=== PATIENT | female | born 1995 ===

== ENCOUNTER 2023-08-06 06:42 | Day surgery (SDC) | payer OTHER ==
[2023-08-05 10:53] LABS: HEMATOCRIT 38.7 % (36.0-45.00); HEMOGLOBIN 12.8 g/dL (12.0-15.00); MEAN CELL VOLUME 91.6 fL (80.00-100.00); MEAN CORPUSCULAR HEMOGLOBIN 30.2 pg (27.00-32.0); PLATELET COUNT 209 K/uL (150-450); RED BLOOD COUNT 4.23 M/uL (4.00-6.00); RED CELL DISTRIBUTION WIDTH 13.2 % (11.5-14.5)
[2023-08-05 11:17] LABS: INR 0.98; PARTIAL THROMBOPLASTIN TIME 28.5 SECONDS (22.0-34.0); PROTHROMBIN TIME 10.3 SECONDS (9.0-11.5)
[2023-08-05 11:21] LABS: BILIRUBIN TOTAL 0.37 mg/dL (0.3-1.2); CALCIUM 9.1 mg/dL (8.5-10.1); CREATININE SERUM 0.68 mg/dL (0.55-1.02); GFR 102.29; GLOBULINA 3.7 G/DL (2.4-3.5); POTASSIUM 4.56 mEq/L (3.5-5.1); TOTAL PROTEIN 7.7 gm/dL (6.4-8.2)
[~2023-08-06 06:42] MED LIST: SYNTHROID75 MCG PO
== END 2023-08-07 01:45 | disposition home or self-care (01) ==
LOC: CIR.AMB 06:42
PROVIDERS: ATTEND Obstetrics & Gynecology
DX: O02.1 Missed abortion (principal); O72.2 Delayed and secondary postpartum hemorrhage; Z20.822 Contact with and (suspected) exposure to COVID-19

== ENCOUNTER 2024-06-26 14:00 | Inpatient (IN) | payer OTHER ==
[~2024-06-26] VITALS: Ht 160 cm; Wt 3.2 kg
[2024-07-11 16:02] VITALS: BP 116/65
[2024-07-11 16:37] LABS: HEMATOCRIT 36.3 % (36.0-45.00); HEMOGLOBIN 12.2 g/dL (12.0-15.00); MEAN CELL VOLUME 93.4 fL (80.00-100.00); MEAN CORPUSCULAR HEMOGLOBIN 31.3 pg (27.00-32.0); MEAN CORPUSCULAR HGB CONC 33.5 g/dl (32.0-36.0); PLATELET COUNT 167 K/uL (150-450); RED BLOOD COUNT 3.89 M/uL (4.00-6.00); RED CELL DISTRIBUTION WIDTH 13.3 % (11.5-14.5)
[2024-07-11] MEDS ORDERED: MISOPROSTOL 25 MCG TABLET ONE (16:40)
[2024-07-11 17:11] LABS: INR < 0.93; PARTIAL THROMBOPLASTIN TIME 27.6 SECONDS (22.0-34.0); PROTHROMBIN TIME 9.8 SECONDS (9.0-11.5)
[2024-07-11] MEDS ORDERED: MORPHINE SULFATE 4 MG/ML CARTRIDGE IV PRN (17:15)
[2024-07-11 17:17] LABS: ALBUMIN 3.1 gm/dL (3.4-5.0); BILIRUBIN TOTAL 0.25 mg/dL (0.3-1.2); CALCIUM 9.4 mg/dL (8.5-10.1); CREATININE SERUM 0.9 mg/dL (0.55-1.02); GFR 74.02; POTASSIUM 4.8 mEq/L (3.5-5.1); TOTAL PROTEIN 7.1 gm/dL (6.4-8.2)
[2024-07-11] MEDS ORDERED: PRENATABS RX T1 EACH PO (17:20)
[2024-07-11] MEDS ORDERED: MISOPROSTOL 25 MCG TABLET VAG ONE (18:30)
[2024-07-12 00:02] VITALS: BP 122/60
[2024-07-12 03:32] VITALS: BP 120/69
[2024-07-12] MEDS ORDERED: LEVOTHYROXINE SODIUM 100 MCG TABLET PO SCH (06:00)
[2024-07-12] MEDS ORDERED: OXYTOCIN 500 ML IV ONE (07:45)
[2024-07-12 07:58] VITALS: BP 129/79
[2024-07-12 09:00] VITALS: BP 122/62
[2024-07-12] MEDS ORDERED: ERYTHROMYCIN BASE 1 GM TUBE OP ONE ×3 (09:13→15:45)
[2024-07-12] MEDS ORDERED: CHLORHEXIDINE GLUCONATE 120 ML BOTTLE TOP ONE (09:14)
[2024-07-12] MEDS ORDERED: OXYTOCIN 20 UNITS/1000ML RL PIGGYBAG IV ONE (09:14)
[2024-07-12] MEDS ORDERED: LIDOCAINE HCL 1% 10ML VIAL ONE (09:14)
[2024-07-12] MEDS ORDERED: OXYTOCIN 10 UNITS/ML VIAL ONE (12:29)
[2024-07-12] MEDS ORDERED: MEPERIDINE HCL/PF 25 MG/ML VIAL IV PRN (13:45)
[2024-07-12] MEDS ORDERED: PROMETHAZINE HCL 25 MG/ML AMPUL IV PRN (13:45)
[2024-07-12] MEDS ORDERED: OXYTOCIN 1,000 ML IV ONE (13:45)
[2024-07-12] MEDS ORDERED: RINGERS SOLUTION,LACTATED 1,000 ML IV SCH (13:45)
[2024-07-12] MEDS ORDERED: ONDANSETRON HCL 2 MG/ML VIAL IV SCH (14:00)
[2024-07-12] MEDS ORDERED: OXYTOCIN 10 UNITS/ML VIAL IV ONE (15:45)
[2024-07-12] MEDS ORDERED: MORPHINE SULFATE 4 MG/ML VIAL IV ONE ×2 (16:30→17:00)
[2024-07-12] MEDS ORDERED: GABAPENTIN 300 MG CAPSULE PO SCH (17:00)
[2024-07-12] MEDS ORDERED: MEPERIDINE HCL 25 MG/ML AMPUL IV ONE (17:30)
[2024-07-12] MEDS ORDERED: ACETAMINOPHEN 500 MG GEL..CAP PO SCH (18:00)
[2024-07-12 18:45] VITALS: BP 103/65
[2024-07-12 21:27] VITALS: BP 115/71
[2024-07-13 01:43] VITALS: BP 109/71
[2024-07-13 06:34] LABS: HEMATOCRIT 30.6 % (36.0-45.00); HEMOGLOBIN 10.5 g/dL (12.0-15.00); MEAN CELL VOLUME 91.6 fL (80.00-100.00); MEAN CORPUSCULAR HEMOGLOBIN 31.3 pg (27.00-32.0); MEAN CORPUSCULAR HGB CONC 34.2 g/dl (32.0-36.0); PLATELET COUNT 144 K/uL (150-450); RED BLOOD COUNT 3.34 M/uL (4.00-6.00); RED CELL DISTRIBUTION WIDTH 13.8 % (11.5-14.5)
[2024-07-13 06:39] VITALS: BP 110/69
[2024-07-13] MEDS ORDERED: OxyCODONE HCL 5 MG TABLET (ROXICODONE) PO PRN (08:00)
[2024-07-13] MEDS ORDERED: OxyCODONE HCL/APAP UD (PERCOCET) PO PRN (08:00)
[2024-07-13] MEDS ORDERED: IBUprofen 400 MG TABLET PO PRN (08:00)
[2024-07-13 08:47] VITALS: BP 117/76
[2024-07-13] MEDS ORDERED: FERROUS SULFATE 325 MG TABLET.EC PO NR (09:50)
[2024-07-13 16:44] VITALS: BP 99/66
[2024-07-14] VITALS: BP 106/69
[2024-07-14 09:14] VITALS: BP 114/61
[2024-07-14 12:55] VITALS: BP 110/68
[2024-07-14 17:05] VITALS: BP 120/62
[2024-07-14 21:26] VITALS: BP 123/75
[2024-07-15 02:37] VITALS: BP 105/69
[2024-07-15 09:00] VITALS: BP 105/67
== END 2024-07-15 13:14 | disposition home or self-care (01) | DRG 788 ==
LOC: OB/GYN 07-09 14:00 → LDR 07-11 14:50 → O/R 07-12 12:58 → OB/GYN 07-12 18:41
PROVIDERS: ADMIT Obstetrics & Gynecology; ATTEND Obstetrics & Gynecology
PROC: 4A1HXCZ Monitoring of Products of Conception, Cardiac Rate, External Approach (ICD-10-PCS; 2024-07-11)
PROC: 3E0P7VZ Introduction of Hormone into Female Reproductive, Via Natural or Artificial Opening (ICD-10-PCS; 2024-07-11)
PROC: 3E033VJ Introduction of Other Hormone into Peripheral Vein, Percutaneous Approach (ICD-10-PCS; 2024-07-12)
PROC: 10D00Z1 Extraction of Products of Conception, Low, Open Approach (ICD-10-PCS; principal; 2024-07-12 13:00)
DX: O36.8130 Decreased fetal movements, third trimester, not applicable or unspecified (principal); O67.8 Other intrapartum hemorrhage; Z3A.40 40 weeks gestation of pregnancy; Z37.0 Single live birth; Z20.822 Contact with and (suspected) exposure to COVID-19

== ENCOUNTER → 2024-07-09 | Outpatient (CLI) | payer OTHER ==
[~2024-07-09] MED LIST changes: +PRENATABS RX T1 EACH PO
== END | disposition home or self-care (01) ==
LOC: NST 09:13
PROVIDERS: ATTEND Obstetrics & Gynecology
DX: Z34.83 Encounter for supervision of other normal pregnancy, third trimester (principal)

== ENCOUNTER 2025-07-25 20:09 | Emergency (ER) | payer OTHER ==
[~2025-07-25] VITALS: Ht 160 cm; Wt 61.2 kg
[2025-07-25] MEDS ORDERED: SYNTHROID50 MCG PO (20:41)
[2025-07-25 20:42] VITALS: BP 107/70; O2SAT 99
[2025-07-25 22:17] LABS: BASO % 0.6 % (0.1-1.2); EOS # 0.18 (0.04-0.54); EOS % 2.0 % (0.7-7.0); LYMPH # 2.78 (1.18-3.74); LYMPH % 31.2 % (19.3-53.1); MEAN PLATELET VOLUME 10.30 fl (9.4-12.4); MONO # 0.60 (0.24-0.82); MONO % 6.7 % (4.7-12.5); NEUT # 5.27 (1.56-6.13); NEUT % 59.3 % (34.0-71.1); RED CELL DISTRIBUTION WIDTH 12.5 % (11.6-14.4)
[2025-07-25 23:14] LABS: URINE APPEARANCE Cloudy; URINE BILIRRUBIN Negative (NEGATIVE); URINE BLOOD Large; URINE COLOR Orange; URINE GLUCOSE Negative (NEGATIVE); URINE KETONE Trace (NEGATIVE); URINE LEUKOCYTE Trace; URINE NITRATE Negative; URINE UROBILINOGEN 0.2 E.U./dl
[2025-07-25 23:19] LABS: URINE BACTERIA 337.1 uL (0.0-1933); URINE EPITHELIAL CELLS 36.6 uL (0.0-38.8); URINE RBC 8108.0 uL (0.0-20.8); URINE WBC 34.4 uL (0.0-23.2)
[2025-07-25 23:24] LABS: URINE CAST 0.29 uL (0.0-1.40); URINE PROTEIN 100 (NEGATIVE)
== END 2025-07-26 00:13 | disposition home or self-care (01) ==
LOC: ER 20:09
PROVIDERS: General Practice
DX: O20.8 Other hemorrhage in early pregnancy (principal); Z3A.01 Less than 8 weeks gestation of pregnancy; Z88.6 Allergy status to analgesic agent; Z88.0 Allergy status to penicillin